=== PATIENT | female | born 1965 ===

== ENCOUNTER → 2017-05-13 | Outpatient (REF) ==
[2017-05-13 16:33] LABS: ALBUMIN 3.7 gm/dL (3.5-5.0); CALCIUM 8.4 mg/dL (8.4-10.2)
== END ==
LOC: ZMSC 16:08
PROVIDERS: Otolaryngology
DX: Z01.89 Encounter for other specified special examinations (principal)

== ENCOUNTER → 2017-05-14 | Outpatient (REF) ==
[2017-05-14 05:44] LABS: ALBUMIN 3.4 gm/dL (3.5-5.0); CALCIUM 8.6 mg/dL (8.4-10.2); PHOSPHOROUS 3.9 mg/dL (2.5-4.5)
[2017-05-14 15:36] LABS: ALBUMIN 3.6 gm/dL (3.5-5.0); CALCIUM 9.2 mg/dL (8.4-10.2); PHOSPHOROUS 2.7 mg/dL (2.5-4.5)
== END ==
LOC: ZMSC 05:00
PROVIDERS: Otolaryngology
DX: Z01.89 Encounter for other specified special examinations (principal)